=== PATIENT | male | born 1960 | race Caucasian/White ===

== ENCOUNTER 2024-08-11 13:36 | Outpatient (REF) | payer BC, SELFPAY ==
[2024-08-11 19:35] LABS: ALT 47 U/L (16-63); AST 24 U/L (15-37); Albumin 3.7 g/dL (3.4-5.0); Alkaline Phosphatase 104 U/L (46-116); Anion Gap 5.2 mmol/L (3-11); BUN 18 mg/dL (7-18); Bilirubin, Total 0.39 mg/dL (0.2-1.0); CO2 28.8 mmol/L (21.0-32.0); CREATININE 0.9 mg/dL (0.70-1.30); Calculated LDL 131 mg/dL (<100); Chloride 104 mmol/L (98-107); Cholesterol 209 mg/dL (<200); Estimated GFR 95.97 (mL/min/1.73m2); Glucose 102 mg/dL (74-106); HDL Cholesterol 58 mg/dL (40-60); Potassium 4.2 mmol/L (3.5-5.1); Sodium 138 mmol/L (136-145); Total Protein 7.5 g/dL (6.4-8.2); Triglyceride 102 mg/dL (<150)
== END 2024-08-11 13:37 | disposition home or self-care (01) ==
LOC: NCHCN 13:36
PROVIDERS: PCP Family Medicine; Visit Provider Nurse Practitioner Family
DX: I10 Essential (primary) hypertension (principal); E78.5 Hyperlipidemia, unspecified
CPT/HCPCS: 80053; 80061

== ENCOUNTER 2025-01-12 10:27 | Outpatient (REF) | payer BC, SELFPAY ==
[2025-01-12 19:51] LABS: Calculated LDL 120 mg/dL (<100); Cholesterol 188 mg/dL (<200); HDL Cholesterol 54 mg/dL (>or=40); Triglyceride 74 mg/dL (<150)
== END 2025-01-12 10:28 | disposition home or self-care (01) ==
LOC: NCHCN 10:27
PROVIDERS: PCP Family Medicine; Visit Provider Nurse Practitioner Family
DX: E78.5 Hyperlipidemia, unspecified (principal)
CPT/HCPCS: 80061

== ENCOUNTER 2025-09-02 18:31 | Outpatient (REF) | payer BC, SELFPAY ==
[2025-09-02 20:00] LABS: Abs Immature Grans 0.04 10^3/uL (0.0-0.06); HCT 51.5 % (40.0-50.0); HGB 16.9 g/dL (13.5-17.5); Immature Grans % 0.4 %; MCH 29.1 pg (27.0-33.0); MCHC 32.8 % (32.0-36.0); MCV 89 fL (80-95); MPV 9.3 fL (8.0-11.0); Platelet Count 387 10^3/uL (130-400); RBC 5.80 10^6/uL (4.36-5.78); RDW 12.7 % (11.8-14.1); RDW-SD 41.1 fL; WBC 9.33 10^3/uL (4.4-10.8)
[2025-09-02 20:10] LABS: ALT 26 U/L (10-49); AST 24 U/L (<34); Albumin 4.7 g/dL (3.2-5.0); Alkaline Phosphatase 108 U/L (46-116); Anion Gap 9.7 mmol/L (3-11); BUN 14 mg/dL (9-23); Bilirubin, Total 0.4 mg/dL (0.2-1.2); CO2 25.3 mmol/L (20.0-31.0); Calcium 9.9 mg/dL (8.3-10.6); Chloride 106 mmol/L (98-107); Glucose 82 mg/dL (74-106); Potassium 4.1 mmol/L (3.5-5.1); Sodium 141 mmol/L (136-145); Total Protein 7.7 g/dL (5.7-8.2)
[2025-09-03 18:09] LABS: Hepatitis C Ab w Rflx HCV PCR Negative (Negative)
[2025-09-03 18:13] LABS: HIV-1/2 Ag & Ab Screen Negative (Negative)
== END 2025-09-02 18:32 | disposition home or self-care (01) ==
LOC: NCHCN 18:31
PROVIDERS: PCP Family Medicine; Visit Provider Nurse Practitioner Family
DX: Z11.4 Encounter for screening for human immunodeficiency virus [HIV] (principal); I10 Essential (primary) hypertension
CPT/HCPCS: 80053; 86803; 87389; 85025